=== PATIENT | male | born 1995 | race Two or more races ===

== ENCOUNTER 2024-12-24 15:16 | Emergency (ER) | payer MEDICAID, SELFPAY ==
[2024-12-24 15:21] VITALS: BP 144/98; PULSE 95; RESP 18; TEMP 36.4; O2SAT 96
[2024-12-24 15:24] VITALS: PULSE 92; RESP 16; O2SAT 97; BMI 24.1
--- NOTE | 2024-12-24 16:29 | PC.NURSE ---
in to assess pt. pt biba with c/o seizure lasting 1 min,witnessed by girlfriend and friend. pt with known hx of seizures. reports not taking seizure medication for the past few days because he was camping and forgot meds. pt also reports alcohol consumption today. pt with c/o headache. per girlfriend no trauma to the head. bite unger on right side of tongue. provider at bedside to assess, orders received and initiated. girlfriend at bedside. plan of care ongoing.
--- NOTE | 2024-12-24 16:33 | EKG_ITS ---
[facility] Test Date: 2024-12-24 Pat Name: BAILEY COLE Department: Room: - Gender: Male Puffer Tender: : 1995 Requested By: Miriam Torres Order Number: [id number] Reading MD: Miriam Torres Measurements Intervals [place] Rate: 82 P: 57 AK: 154 QRS: 87 QRSD: 97 T: 61 QT: 369 QTc: 432 Interpretive Statements SINUS RHYTHM Compared to ECG 07/30/2021 23:00:19 No significant changes /store/S0/[id number].pdf
--- NOTE | 2024-12-24 16:38 | EDNOTE_ITS ---
ED Seizures RME/HPI General Chief Complaint: Seizure Stated Complaint: SEIZURE Arrival date/time: 12/24/24 15:16 RME / HPI RME / HPI Narrative: A 29-year-old male patient with past medical history of seizure disorder since the age of 7 was brought to the ED from [facility] after he had a tonic-clonic seizure. Patient reported that he was having a Trip with his girlfriend and the friend in which he forgot to take his Keppra for 1 day. He also reported that he had some episodes of vomiting in which she related them to the alcohol drinking. Patient reported that he fell down to the ground and he feel headache, he also reported that he bit her tongue and there was minimal bleed. Denied any loss of sphincter control. He also reported that he had some episodes of vomiting. The episodes happen [facility] planning to go for swimming. Patient does not remember when was the last time he seen a neurologist and he mentions that his medication are prescribed by a family healthcare provider. Related Data Home Medications ?Medication ?Instructions ?Recorded ?Confirmed levetiracetam 500 mg tablet 1,500 mg PO Q12H ##180 05/14/21 Previous Rx's ?Medication ?Instructions ?Recorded ondansetron HCl 4 mg tablet 4 mg PO Q12H #7 tabs 05/14 (Zofran) esomeprazole magnesium 20 mg 20 mg PO QDAY #20 caps capsule,delayed release (Nexium) ondansetron HCl 4 mg tablet 4 mg PO QID PRN nausea and 07/31/21 (Zofran) vomiting #14 tabs Allergies Allergy/AdvReac Type Severity Reaction Status Date / Time No Known Allergies Allergy Verified 05/14/21 11:41 ED Exam Narrative Physical exam: GEN: AOx3, able to speak full sentences, lying in bed comfortably HEENT: NC/AC, oral mucosa moist, no signs of laceration or foreign body, neck supple CVS: RRR, S1-S2 present, no murmurs appreciated RESP: CTAB GI: soft,non distended, non tender, NBS MSK: able to move all 4 limbs, no lower extremity edema SKIN: Extensive tattoos [employer]PER[employer]: CN II-XII and Sensation grossly intact. Course Quality Measures none Orders Category Date Time Status Aspiration precautions ONCE Care 12/24/24 16:33 Completed Bedside Blood Glucose NOW Care 12/24/24 16:33 Completed Continuous Pulse Oximetry NOW Care 12/24/24 16:33 Completed EKG (ED ONLY) *Do not use* NOW Care 12/24/24 16:33 Completed Insert IV STAT Care 12/24/24 16:33 Completed NPO NOW Care 12/24/24 16:33 Completed Seizure precautions NOW Care 12/24/24 16:[address] cervical spine wo con Stat Exams 12/24/24 16:[address] head/brain wo con Stat Exams 12/24/24 16:42 Completed CXRP [XR chest 1V portable] Stat Exams 12/24/24 16:40 Completed EKG (ED Only) Stat Exams 12/24/24 16:33 Draft Alcohol, Blood Medical Stat Lab 12/24/24 17:04 Completed CBC Stat Lab 12/24/24 17:04 Completed Comprehensive Metabolic Panel Stat Lab 12/24/24 17:04 Completed Drug Screen,Urine Stat Lab 12/24/24 17:07 Completed Lactate (Lactic Acid) Stat Lab 12/24/24 17:04 Completed Partial Thromboplastin Time Stat Lab 12/24/24 17:04 Completed Prothrombin Time with INR Stat Lab 12/24/24 17:04 Completed Troponin I Stat Lab 12/24/24 17:04 Completed Urinalysis Stat Lab 12/24/24 17:07 Completed Ondansetron Inj [Zofran Inj] Med 12/24/24 16:33 Discontinued 4 mg IV PRN PRN Sodium Chloride 0.9% 1000 ml [Ns] 1,000 ml Med 12/24/24 16:33 Discontinued IV 999 mls/hr levETIRAcetam INJ [Keppra Inj] Med 12/24/24 16:37 Discontinued 1,500 mg IVP X1 ONE Vital Signs Vital signs: Vital Signs Temperature 97.5 F 12/24/24 15:21 Pulse Rate 95 12/24/24 15:21 Respiratory Rate 18 12/24/24 15:21 Blood Pressure 144/98 H 12/24/24 15:21 Pulse Oximetry (%) 96 12/24/24 15:21 Seizure MDM Narrative MDM Narrative:: CT scan of the brain was negative for any hemorrhage or mass effect, cervical CT was also negative for any cervical fracture. Patient tested positive for THC and cocaine. Patient reported that he has multiple episodes of vomiting secondary to alcohol. He reported that he drinks alcohol daily. We believe that his seizure is secondary to drug noncompliance as he has not taken his home medication Keppra for 1 day. He also reported that he has some episodes of vomiting in which he cannot tolerate his Keppra medication. His electrolytes are within normal limits, patient did not exhibit any signs of infection. No nuchal rigidity or cervical tenderness. Patient has not had any neurologist for many years. Patient will be discharged to follow-up in outpatient settings with his PCP and also with a neurologist within 1 week. Patient data External records reviewed:: [facility] previous records and EMS form Clinical information provided by:: patient and spouse Social determinants that could affect healthcare access:: substance use Patient has the following chronic illnesses:: Polysubstance use disorder, seizure disorder How is presenting disease/condition affected by chronic disease/condition?: caused by Evaluation data The following diagnostics were reviewed and interpreted by me:: lab results, radiology exam(s) and EKG tracing(s) Lab and/or radiology exams considered but not ordered:: None Interpretation Summary: Seizure episode secondary to drug noncompliance and polysubstance use disorder Medications / Prescriptions Medications or Prescriptions considered but not ordered:: None Medication administrations:: Medication Administration History Discontinued Medications Sodium Chloride (Ns) 1,000 mls @ 999 mls/hr IV .Q1H1M ONE Stop: 12/24/24 17:33 Last Infusion: 12/24/24 18:18 Dose: Infused Documented By: Admin: 12/24/24 16:42 Dose: 999 mls/hr Documented By: MAYDA Levetiracetam (Levetiracetam Inj 100 Mg/Ml Vial 5ml) 1,500 mg IVP X1 ONE; Protocol Stop: 12/24/24 16:38 Last Admin: 12/24/24 16:53 Dose: 1,500 mg Documented By: MAYDA Ondansetron HCl (Ondansetron Inj 2 Mg/Ml Inj 2 Ml) 4 mg IV PRN PRN PRN Reason: NAUSEA OR VOMITING As above Consultations Consultation(s) initiated? (list below): No Diagnosis Seizure Differential Diagnosis: generalized seizure and epileptic seizure Most likely diagnosis given after review of the tests above:: Epileptic seizure Admission Indicated Admission indicated?: not indicated Admission Request Was there a request for admission?: No Disposition Plan Disposition Plan: Discharge Discharge Attestation Discharge Attestation: The patient and all family members were given an opportunity to ask questions and understood the discharge instructions. Discharge instructions specifically effects, indications for sooner follow up or return to the emergency department, and the expected course of current diagnosis. Patient condition: Stable Discharge Plan Plan Patient Disposition: HOME (Self Care) Patient condition on transfer: Stable and Benefits outweigh risks Health Concerns: Follow-up with your primary care provider within 1 week from discharge Follow-up with a neurologist as soon as possible at least within 1 week from discharge Use your medications Keppra daily and consistently. Your seizure most likely secondary to missing your doses of Keppra secondary to your vomiting that is result of alcohol drinking. Avoid drug abuse as it also worsen your condition Avoid working on any heavy machinery, swimming, or driving In case of recurrence of your symptoms, intractable headache or neck pain, persistent vomiting please return to the ED as soon as possible. Prescriptions/Referrals Prescriptions/Med Rec: No Action levetiracetam 500 MG tablet 1,500 mg PO Q12H Qty: 180 ondansetron HCl [Zofran] 4 mg tablet 4 mg PO Q12H Qty: 7 0RF esomeprazole magnesium [Nexium] 20 mg capsule,delayed release(DR/EC) 20 mg PO QDAY Qty: 20 0RF ondansetron HCl [Zofran] 4 mg tablet 4 mg PO QID PRN (Reason: nausea and vomiting) Qty: 14 0RF Referrals: Matt Drake MD [Primary Care Provider] - In 1 week Problem List Clinical Impression: Seizure Patient/Caregiver Discharge Instructions Discharge Activity: activity as tolerated Education Materials: ED Seizure, Recurrent (Adult) Print Language: Bahraini Stand Alone Forms: Toya Award Info., Patient Portal Info Letter Attestation Attestation I, Brian Sparrow MD, have reviewed the history, exam, and assessment of the patient. I have evaluated the patient independently and agree with the plan of care documented by [ ]. All diagnostic studies were reviewed and discussed. I confirm the diagnosis as documented by the Resident. I was present during the Medical Decision Making for this patient. The patient's plan of care was created between myself and the Resident and consistent with our discussion of the patient's case.
--- NOTE | 2024-12-24 16:40 | XR_ITS ---
Examination: AP chest single view TECHNIQUE: AP portable upright chest single view Date and time: December 24, 2024, 1716 hours INDICATIONS: Seizure today FINDINGS: Normal heart size. No aspiration pneumonia. The osseous structures are intact IMPRESSION: Negative for aspiration pneumonia
[2024-12-24] MEDS: SODIUM CHLORIDE 0.9% 1000 ML 1,000 ML 999 ML IV (16:42)
--- NOTE | 2024-12-24 16:42 | XR_ITS ---
Examination: CT cervical spine without contrast 2-D sagittal reconstructions 2-D coronal reconstructions 3-D reconstructions. Exam date and time:December 24, 2024 1735 hours Comparison May 14, 2021 INDICATION: Seizures today with injury to the neck, neck pain CTDI:vol (mGy) 9.74 DLP: (mGycm) 213 Technique: Multiple 2 mm axial sections of the cervical spine have been obtained. The coronal and sagittal reconstructions have been obtained. 3-D reconstructions have been obtained. Low dose protocols were performed. One or more of the following dose reduction techniques were used; automated exposure control, adjustment of the mA and/or KV according to patient size, use of iterative reconstruction technique. Findings: Axial sections demonstrate intact base of the skull. C1 exhibit satisfactory relationship to the odontoid. No acute cervical vertebral body fracture seen. Alignment posterior spinous processes satisfactory. Impression: No acute cervical fracture.
--- NOTE | 2024-12-24 16:42 | XR_ITS ---
Examination: CT brain head without contrast. 2-D sagittal coronal reconstructions Date and time of exam: December:2024 1735 hours CTDI: vol (mGy):48.1 DLP: (mGycm):978 INDICATIONS: Seizure today Technique: Multiple CT axial sections of the brain have been obtained, 5 mm slice thickness. Contrast has not been administered. 2-D sagittal, coronal reconstructions have been obtained Low dose protocols were performed. One or more of the following dose reduction techniques were used; automated exposure control, adjustment of the mA and/or KV according to patient size, use of iterative reconstruction technique. Findings: No significant ventricular enlargement. Intra-axial or extra-axial hemorrhage density is not seen. No mass effect or midline shift Basal cisterns are not remarkable. Fourth ventricle is midline. Cranial vault intact. Impression: Negative for acute hemorrhage, mass effect or midline shift Consider elective brain MRI follow-up, pre and postcontrast, seizure protocol
[2024-12-24] MEDS: levETIRAcetam INJ 100 MG/ML VIAL 5ML 1500 MG IVP (16:53)
[2024-12-24 17:07] LABS: Lactate (Lactic Acid) 1.5 mMol/L (0.4-2.0)
[2024-12-24 17:09] LABS: Basophils % (Auto) 0 % (0-2.5); Eosinophils # (Auto) 0.1 Thou/mm3 (0.0-0.5); Eosinophils % (Auto) 0 % (0-10); Hematocrit 44.2 % (41.0-53.0); Hemoglobin 15.4 g/dL (13.5-16.0); Immature Granulocytes % (Auto) 0 % (0-0); Immature Granulocytes Auto 0.05 Thou/mm3 (0.00-0.00); Lymphocytes # (Auto) 1.2 Thou/mm3 (1.0-4.8); Lymphocytes % (Auto) 10 % (10-50); Mean Corpuscular HGB Conc 34.8 g/dl (31.0-37.0); Mean Corpuscular Hemoglobin 32.8 pg (25.0-35.0); Mean Corpuscular Volume 94 fL (80-100); Monocytes # (Auto) 0.8 Thou/mm3 (0.0-0.8); Monocytes % (Auto) 6 % (0-12); Neutrophils # (Auto) 9.8 Thou/mm3 (1.8-7.7); Neutrophils % (Auto) 83 % (37-80); Nucleated Red Blood Cell % 0 /100 WBC (0); Platelet Count 320 Thou/mm3 (140-440); RDW Standard Deviation 46.7 fL (35.1-43.9); White Blood Count 11.8 Thou/mm3 (3.8-10.6)
[2024-12-24 17:21] LABS: Collection Type, Urine Clean Catch; Squamous Epithelial Cell,Urine 0 /hpf (0-5)
[2024-12-24 17:26] LABS: Bilirubin,Urine Negative (Negative); Blood,Urine Negative (Negative); Clarity,Urine Clear (Clear/Hazy); Color,Urine Lt-Yellow (Lt Yel-Yel); Glucose, Urine Negative (Negative); Ketones,Urine 1+ (Negative); Leukocyte Esterase,Urine Negative (Negative); Nitrite,Urine Negative (Negative); PH,Urine 7.5 (5.0-7.0); Protein,Urine 1+ (Neg - Trace); RBC,Urine 2 /hpf (0-3); Specific Gravity,Urine 1.023 (1.001-1.035); Urobilinogen,Urine Negative mg/dL (0.0-1.0); WBC,Urine 1 /hpf (0-5)
--- NOTE | 2024-12-24 17:32 | PC.NURSE ---
PT TAKEN TO CT.
[2024-12-24 17:38] LABS: Amphetamine/Methamp Scrn,U Negative (Negative); Barbiturate Screen,Urine Negative (Negative); Benzodiazepines Screen,Urine Negative (Negative); Benzoylecgonine Screen, Ur Positive (Negative); Fentanyl Screen,Urine Negative (Negative); Opiate Screen,Urine Negative (Negative); THC Screen,Urine Positive (Negative)
[2024-12-24 17:38] LABS: Alanine Aminotransferase 114 U/L (10-49); Albumin, Serum 4.8 gm/dL (3.5-5.0); Alcohol, Blood Medical < 3.0 mg/dL (0-10.0); Alkaline Phosphatase 67 U/L (46-116); Anion Gap 13 (7-16); BUN/Creatinine Ratio 9 Ratio (12-20); Bilirubin,Total 0.3 mg/dL (0.3-1.2); Blood Urea Nitrogen 8 mg/dL (9-23); Calcium 9.3 mg/dL (8.3-10.6); Calcium (Corrected) 9.3 mg/dL (8.5-10.1); Chloride 103 mMol/L (98-107); Creatinine (Component) 0.9 mg/dL (0.6-1.3); Estimated Creatinine Clearance 104.4 mL/min (>60); Globulin 2.4 gm/dL (2.3-3.5); Glucose 91 mg/dL (74-106); Osmolality,Calculated 285 (275-295); Sodium 144 mMol/L (136-145); Total Protein 7.2 gm/dL (5.7-8.2); Troponin I < 0.002 ng/mL (0.0-0.045); eGFR > 60 See Note
[2024-12-24 17:39] LABS: Partial Thromboplastin Time 23.2 Seconds (22.0-36.0); Prothrombin Time 10.7 Seconds (9.0-12.2)
[2024-12-24 18:19] VITALS: BP 134/88; PULSE 90; RESP 18; TEMP 36.5; O2SAT 96
== END 2024-12-24 18:19 | disposition home or self-care (01) ==
PROVIDERS: Student in an Organized Health Care Education/Training Program; Emergency Provider Emergency Medicine; PCP Family Medicine
DX: G40.909 Epilepsy, unspecified, not intractable, without status epilepticus (principal); T42.6X6A Underdosing of other antiepileptic and sedative-hypnotic drugs, initial encounter; Z91.148 Patient's other noncompliance with medication regimen for other reason; S19.9XXA Unspecified injury of neck, initial encounter; W19.XXXA Unspecified fall, initial encounter
CPT/HCPCS: 36415; 70450; 71045; 72125; 80053; 80307; 80320; 81001; 83605; 84484; 85025; 85610; 85730; 93005; 96361; 96374; 99284; J1953; J7030; G0480